=== PATIENT | male | born 1985 ===

== ENCOUNTER 2021-12-04 19:34 | Emergency (ER) | payer OTHER ==
[2021-12-04 19:45] VITALS: BP 131/83; PULSE 88; TEMP 97.8; BMI 27.4
== END 2021-12-04 20:49 | disposition home or self-care (01) ==
LOC: JER 19:34 → JERFT 19:34
DX: T23.132A Burn of first degree of multiple left fingers (nail), not including thumb, initial encounter (principal); X19.XXXA Contact with other heat and hot substances, initial encounter
CPT/HCPCS: 99283-25